=== PATIENT | male | born 1985 | race Caucasian/White ===

== ENCOUNTER 2017-09-29 10:07 | Emergency (ER) | payer OTHER ==
[2017-09-29 10:14] VITALS: PULSE 94; RESP 16; O2SAT 98
[2017-09-29] MEDS ORDERED: PROPARACAINE 0.5% 15 ML OPHT DROP OP ONE (10:21)
[2017-09-29] MEDS ORDERED: FLUORESCEIN SODIUM 1 MG STRIP OP ONE (10:21)
[2017-09-29] MEDS ORDERED: TDAP ADULT 0.5 ML INJ (BOOSTRIX) IM ONE (10:59)
--- NOTE | 2017-09-29 11:22 | EDPHY ---
General Narrative: CHIEF COMPLAINT: Left eye injury HISTORY OF PRESENT ILLNESS: Patient complaining of left eye injury while at work this morning. Around 9:30 a.m. he was working on and bus when a bolt popped off and struck him in the left eye. No eye glasses in use. Painful at the time but minimally plain full now. Blurry vision of the left eye. No headache. No nausea or vomiting. No loss of consciousness. He does not wear contacts or corrective lens. He does not know when his last tetanus immunization was administered. No other associated complaints. No modifying factors. REVIEW OF SYSTEMS: Ten systems reviewed and are negative unless otherwise noted in the HPI PCP: None SPECIALISTS: None PAST MEDICAL HISTORY: None PAST SURGICAL HISTORY: None SOCIAL HISTORY: Daily smoker. Occasional alcohol. No drug use. FAMILY HISTORY: Noncontributory EXAMINATION General Appearance: Alert, no distress Head: normocephalic, ecchymosis and superficial laceration to the left lower eyelid. No Rubalcava sign. No raccoon eyes. Eyes: Pupils equal and round, bilateral conjunctivae injection. Left lower eyelid laceration as below. EOMs intact. No nystagmus. No dysconjugate gaze. No diplopia with upward outward gaze. No diplopia with down and out gaze. Slit-lamp examination below. ENT, Mouth: Mucous membranes moist airway patent Respiratory: No retractions or distress Cardiovascular: Regular rate Neurological: A&O, nonfocal, normal gait. No facial droop. Skin: Warm and dry, no rash. 1 cm laceration to the left lower eyelid. Superficial. No foreign body. No involvement of the tarsal plate. Extremities: Nontender, no pedal edema Psychiatric: Mood and affect normal DIFFERENTIAL DIAGNOSES: Including but not limited to globe laceration, globe contusion, conjunctival abrasion, conjunctival foreign body, laceration of the eyelid MDM: 10:45 a.m. Trauma to the left eye from a bolt while at work. There is a laceration on the lower eyelid. There is some injection to the left conjunctiva but no obvious foreign body. No hyphema. I will stain and perform a slit-lamp examination. 11:10 a.m. Slit-lamp examination performed. There is an abrasion over the cornea centrally. I do not appreciate any branching lesions. I do not appreciate any foreign body or rust ring. Lids everted. No hyphema. No subconjunctival hemorrhage. I will discuss with Ophthalmology for further examination. I will proceed with irrigation closure of the eyelid laceration. Tetanus will need to be updated here. 11:15 a.m. Case discussed with the fish hatchery assistant Dr. Lindo. He would like to see the patient in his office as soon as possible to evaluate the patient or at 1:00 p.m. if he is unable to make it by noon. 11:45 a.m. Laceration of the lower eyelid was repaired. Special care was taken not to involve the tarsal plate. This was an uncomplicated laceration well below the lid margin. Wound care discussed. Suture removal in 5-7 days. At this time he is discharged in stable condition. He will proceed directly to fish hatchery assistant to see Dr. Lindo. PROCEDURE: Laceration repair Consent: Verbal Location: Left lower eyelid Length of repair: 1 cm Complexity: Simple Layer involvement: Single Anesthesia: Local per 1% lidocaine plain. A 4 mL Irrigation: Extensive Debridement: None Procedure description: Following good anesthesia, the wound was copiously irrigated. Wound bed was explored and there is no foreign body noted. There is no injury to the tarsal plate. This does not communicate through to the inside of the eyelid. Wound borders were approximated well with good hemostasis. Tolerated well without complication. Suture/Staple material: 6-0 Prolene, 2 simple ruptured sutures Wound care: Routine as discussed Suture/Staple removal: 5-7 Days - History Smoking Status: Current every day smoker - Objective Vital Signs: Initial Vital Signs Temperature (C) 98.8 F 09/29/17 10:12 Heart Rate 94 09/29/17 10:12 Respiratory Rate 16 09/29/17 10:12 O2 Sat (%) 98 09/29/17 10:12 O2 Delivery Mode Room Air Allergies/Adverse Reactions: No Known Allergies Allergy (Unverified 09/29/17 10:11) Home Medications: Medication Instructions Recorded NK [No Known Home Meds] 09/29/17 Medications Given: Discontinued Medications Diphtheria/Tetanus/Acell Pertussis (Boostrix) 0.5 ml IM .ONCE ONE Stop: 09/29/17 11:00 Last Admin: 09/29/17 11:27 Dose: 0.5 ml Fluorescein Sodium (Jaefn-X-Adzmx) 1 mg OP EDNOW ONE Stop: 09/29/17 10:22 Last Admin: 09/29/17 10:48 Dose: 1 mg Proparacaine HCl (Alcaine 0.5%) 1 drops OP EDNOW ONE Stop: 09/29/17 10:22 Last Admin: 09/29/17 10:48 Dose: 1 drop Departure - Departure Disposition: Home, Routine, Self-Care Clinical Impression: Conjunctival abrasion Qualifiers: Encounter type: initial encounter Laterality: left Qualified Code(s): S05.02XA - Injury of conjunctiva and corneal abrasion without foreign body, left eye, initial encounter Left eyelid laceration Qualifiers: Encounter type: initial encounter Qualified Code(s): S01.112A - Laceration without foreign body of left eyelid and periocular area, initial encounter Condition: Good Instructions: Care For Your Stitches (ED), Laceration (ED), Corneal Abrasion ( ED) Additional Instructions: 1. Proceed directly to Ophthalmology for follow-up 2. Return here or your [facility] in 5-7 days for suture removal Referrals: NONE *PRIMARY CARE P,. [Primary Care Provider] - As per Instructions Hao Lindo MD [Medical Doctor] - As per Instructions Stand Alone Forms: Work Comp Follow Up
[2017-09-29 11:54] VITALS: TEMP 98.4
== END 2017-09-29 11:54 | disposition home or self-care (01) ==
PROC: 08QRXZZ Repair Left Lower Eyelid, External Approach (ICD-10-PCS; principal; 2017-09-29)
DX: S01.112A Laceration without foreign body of left eyelid and periocular area, initial encounter (principal); S05.02XA Injury of conjunctiva and corneal abrasion without foreign body, left eye, initial encounter; W22.8XXA Striking against or struck by other objects, initial encounter; Y92.69 Other specified industrial and construction area as the place of occurrence of the external cause; Y99.0 Civilian activity done for income or pay; Y93.89 Activity, other specified; F17.200 Nicotine dependence, unspecified, uncomplicated; Z23 Encounter for immunization